=== PATIENT | female | born 1945 | race Caucasian/White ===

== ENCOUNTER 2021-04-21 09:36 | Observation (INO) | payer MEDICARE ==
[~2021-04-21] VITALS: Ht 157.5 cm; Wt 81.8 kg
[2021-04-21 10:31] LABS: BASO % 0.2 % (0.0-2.0); EOS % 0.1 % (0-4.0); GRAN # 8.9 (1.4-6.5); GRAN % 81.5 % (42.2-75.2); HEMATOCRIT 40.4 % (37.0-47.0); HEMOGLOBIN 13.9 g/dl (12.5-16.0); LYMPH # 1.5 (1.2-3.4); LYMPH % 13.4 % (20.0-51.0); MEAN CELL VOLUME 91 fl (80.0-100.0); MEAN CORPUSCULAR HEMOGLOBIN 31 pg (27.0-31.0); MEAN CORPUSCULAR HGB CONC 34 g/dl (33.0-37.0); MEAN PLATELET VOLUME 9.5 fl (7.4-10.4); MONO # 0.5 (0.1-0.6); MONO % 4.4 % (1.7-9.3); PLATELET COUNT 281 K/mm3 (130-400); RED BLOOD COUNT 4.44 M/mm3 (4.10-5.30); REDCELL DISTRIBUTION WIDTH-CV 12.5 % (11.5-14.5)
[2021-04-21 10:42] LABS: ALANINE AMINOTRANSFERASE 37 U/L (4-34); ALBUMIN 4.4 gm/dL (3.5-5.0); ALKALINE PHOSPHATASE 92 U/L (50-136); ANION GAP 11 mmol/L (7-16); AST,SGOT 37 U/L (15-37); BILIRUBIN,TOTAL 0.9 mg/dL (0.0-1.0); BLOOD UREA NITROGEN 16 mg/dL (7-17); CALCIUM 9.7 mg/dL (8.4-10.2); CARBON DIOXIDE 24 mmol/L (22-30); CHLORIDE 101 mmol/L (98-107); CREATININE, serum 0.85 (0.52-1.25); GLUCOSE 141 mg/dL (74-106); LIPASE 31 U/L (23-300); POTASSIUM 4.5 mmol/L (3.4-5.0); SODIUM 136 mmol/L (137-145); TOTAL PROTEIN 7.5 gm/dL (6.4-8.2)
[2021-04-21 10:49] LABS: COLLECTION METHOD CLEAN CATCH
[2021-04-21 11:03] LABS: MUCOUS Present /lpf; PH 5 (5-8); SQUAMOUS EPITHELIAL 0-2 /hpf; URINE APPEARANCE Hazy; URINE BACTERIA None Seen /hpf; URINE BILIRUBIN Negative (NEGATIVE); URINE BLOOD 3+ (NEGATIVE); URINE COLOR Yellow; URINE GLUCOSE Negative (NEGATIVE); URINE KETONE Negative (NEGATIVE); URINE LEUKOCYTE ESTERASE Negative (NEGATIVE); URINE NITRATE Negative (NEGATIVE); URINE PROTEIN(semi-quant) 2+ (NEGATIVE); URINE RBC 20-50 /hpf; URINE UROBILINOGEN Negative (NEGATIVE)
[2021-04-21 11:04] LABS: TROPONIN-I < 0.012 ng/mL (0.000-0.035)
[2021-04-21] MEDS ORDERED: COZAAR 50MG50 MG/TAB PO (15:03)
[2021-04-21] MEDS ORDERED: ZETIA 10MG TAB10 MG PO (15:18)
[2021-04-21] MEDS ORDERED: LOPRESSOR 225 MG/TAB PO (15:19)
[2021-04-21] MEDS ORDERED: WELLBUTRIN XL300 M1 PO (15:19)
[2021-04-21] MEDS ORDERED: LEXAPRO20 MG PO (15:20)
[2021-04-21] MEDS ORDERED: XANAX 0.5MG0.5 MG PO (15:20)
[2021-04-21 15:33] VITALS: BP 152/59; PULSE 84; TEMP 97.4
[2021-04-21 17:45] VITALS: BP 116/46; PULSE 72; TEMP 97.8
[2021-04-21 18:00] VITALS: BP 119/73; PULSE 91
--- NOTE | 2021-04-21 18:07 | NUR ---
Pt back form OR at [facility], resting in bed, feeling MUCH BETTER according ot pt. Drinking water, eating jello, ordering food, VSS. 3 lap sites are CDI and covered with bandaids. Resting quietly, will continue to monitor and give bedside shift report to nightshift nurse who will resume care.
[2021-04-21 18:15] VITALS: BP 118/56; PULSE 87
[2021-04-21 18:30] VITALS: BP 137/65; PULSE 73
[2021-04-21 20:36] VITALS: BP 158/56; PULSE 96; TEMP 98.3
[2021-04-22 01:00] VITALS: BP 128/49; PULSE 105; TEMP 97.7
[2021-04-22 04:26] VITALS: BP 132/63; PULSE 88; TEMP 98.6
--- NOTE | 2021-04-22 05:46 | NUR ---
PT IN BED. NO N/V. PT DENIED NEED FOR PAIN MEDICATION. INDEPJENDENT IN ROOM.
[2021-04-22 08:02] VITALS: BP 132/55; PULSE 90; TEMP 98
--- NOTE | 2021-04-22 10:00 | NUR ---
Patient alert and oriented, answers questions appropriately. See assessment. Abdomen soft, non tender, non distended. Bowel sounds active x4 quads. +Flatus. Lap sites to abdomen with edges well approximated, no redness or drainage noted. Post op exercises reviewed with patient. No c/o at this time.
--- NOTE | 2021-04-22 12:11 | NUR ---
CLINT met with patient to complete intake. 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 Patient states that she does not utilize any DME and is independent with ADL's, PCP is Dr. Mensah, and pharmacy is [facility]. Yessyt provides that her plan is return to her home [place] and has not concerns with doing so. CLINT will continue to follow. DC Plan: Home
--- NOTE | 2021-04-22 12:55 | NUR ---
Discharge instructions reviewed with patient and family, verbalized understanding. Discharged ambulatory to auto/home with family at 1230.
== END 2021-04-22 12:30 | disposition home or self-care (01) ==
LOC: COL.ER 09:36 → SURG 12:29
PROVIDERS: Emergency Medicine; ADMIT Surgery
DX: K35.80 Unspecified acute appendicitis (principal); E78.00 Pure hypercholesterolemia, unspecified; I10 Essential (primary) hypertension; I25.10 Atherosclerotic heart disease of native coronary artery without angina pectoris; E78.5 Hyperlipidemia, unspecified; F32.9 Major depressive disorder, single episode, unspecified; F41.9 Anxiety disorder, unspecified; Z95.5 Presence of coronary angioplasty implant and graft; Z79.899 Other long term (current) drug therapy
CPT/HCPCS: G0378; J0690; J1100; J1885; J2270; J2405; J2543; J2704; J2710; J2765; J3010; J7120; Q9967